=== PATIENT | male | born 1985 | race Caucasian/White ===

== ENCOUNTER 2018-12-14 09:30 | Emergency (ER) | payer MEDICAID ==
--- NOTE | 2018-12-14 09:36 | EDPHY ---
H & P Time Seen by Provider: 12/14/18 09:36 HPI/ROS: HPI: This is a 20-year-old male who presents with Chief Complaint: Medical clearance, dog bites Location: Right forearm right elbow right lomax Quality: Dog scratches, dog bite Duration: Prior to arrival Signs and Symptoms: + bleeding, no radiation, no numbness, no weakness, no tingling, no incontinence, no decreased range of motion, no swelling, + pain, no fever Timing: Acute Severity: [id number] Context: Patient is right-hand dominant, presents accompanied by [facility] Police under arrest after he allegedly ran from the marketing planning manager when they tried to arrest him. Patient was hiding on his left side curl up into a position in the trees when the dog found him. The police dog went after the patient and tried to get him out of his hiding spot. The dog scratched his right lower leg and bit his right forearm. Patient reports moderate, constant, nonradiating pain in his right forearm. He also complains of scratches on his right elbow and right lower leg. She recently released from senior care and reports his tetanus is current. Denies LOC/head injury/neck pain/dizziness/nausea/ vomiting/amnesia/radiation/weakness. No drug allergies. Dog is up-to-date on vaccinations including rabies. Patient is right-hand dominant. Modifying Factors: Police applied a Band-Aid and direct pressure. Comment: ROS: A comprehensive 10 system review of systems is otherwise negative aside from elements mentioned in the history of present illness. MEDICAL/SURGICAL/SOCIAL HISTORY: Medical history: Generally healthy. Does not take any regular medications. Surgical history: Denies Social history: Unemployed. Homeless. Tobacco user. IV methamphetamine user. CONSTITUTIONAL: Mild distress, adult white male, awake and alert, cooperative HEENT: Atraumatic and normocephalic. Poor dentition noted. NECK: supple, no midline tenderness, flexion 45 degrees, extension 45 degrees, right and left lateral flexion 45 degrees. No meningismus. Cardiovascular: Normal S1/S2, regular rate, regular rhythm, without murmur rub or gallop. PULMONARY/CHEST: Symmetrical and nontender. no crepitus. Clear to auscultation bilaterally. Good air movement. No accessory muscle usage. ABDOMEN: Soft, nondistended, nontender, no ecchymosis. PELVIC: no pain with rocking; bilateral hips flexion 125 degrees, extension 30 degrees, with no pain internal rotation and no pain external rotation. BACK: No midline tenderness, no paraspinous spasm, deep tendon reflexes 2/2, no pain with straight leg raise, No foot drop. Achilles reflexes are equal bilaterally. Able to walk on heels and toes without difficulty. EXTREMITIES: 2/2 pulses, strength 5/5, right SHOULDER: Arc test abduction to 180, abduction to 45, horizontal flexion 130, horizontal extension to 45, deltoid strength 5/5. No pain with Neer test/Bond test (impingement). No Tenderness to palpation over AC joint. Right ELBOW: Full extension to 180, flexion to 150, no tenderness over medial epicondyle, no tenderness over lateral epicondyle, no effusion. Right WRIST: Extension to 70, flexion to 80 , radial deviation to 20 degree, ulnar deviation to 30, no scaphoid tenderness , no tenderness over ulnar styloid, no tenderness over radial styloid. DIP/PIP/ MCP flexion/extension intact with good light touch sensation. no deformities, no clubbing, no cyanosis or edema. NEUROLOGICAL: no focal neuro deficits. GCS 15. Light touch sensation intact. SKIN: Warm and dry, right forearm shows 0.5 in puncture wound that is C-shaped 1 in inferior to the right antecubital fossa; abrasions noted to right shoulder , right thigh, right lomax, right calf. no erythema. no rash. Multiple tattoos present on body. Good capillary refill. Source: Patient, Police, RN/MD Exam Limitations: No limitations Constitutional: Initial Vital Signs Temperature (C) 36.5 C 12/14/18 09:30 Heart Rate 74 12/14/18 09:30 Respiratory Rate 16 12/14/18 09:30 Blood Pressure 169/99 H 12/14/18 09:30 O2 Sat (%) 99 12/14/18 09:30 O2 Delivery Mode Room Air Allergies/Adverse Reactions: No Known Allergies Allergy (Unverified 12/14/18 09:36) Home Medications: Medication Instructions Recorded Amoxicillin/Clavulanate Pot 875 mg PO BID #20 tab 12/14/18 [Augmentin 875 MG TAB (*)] Medical Decision Making Procedures: Procedure: Laceration repair. Verbal consent was obtained from the patient. The right forearm, 0.5 in, deep laceration was anesthetized in the usual fashion using 6 mL 1% lidocaine with epinephrine. The wound was irrigated, draped and explored to its base with a gloved finger. There were no deep structures involved. No tendon injury was identified. The wound was loosely approximated with #2, 4-0 PDS. Xeroform and clean sterile dressing applied. The procedure was performed by myself. Procedure: Splint placement. A right posterior arm splint was applied by emergency Room blood bank technician. After application of the splint I returned and re-examined the patient. The splint was adequately immobilizing the joint and distal to the splint the patient's circulation and sensation was intact. ED Course/Re-evaluation: Vital signs reviewed and show tachycardia. Tetanus is up-to-date. No indication for rabies prophylaxis Given Augmentin Abrasions and wounds copiously irrigated Local anesthesia provided to right forearm puncture wound. I loosely approximated puncture edges with #2, 4-0 PDS. Xeroform and clean sterile dressing applied. Decision made to put patient in long-arm posterior splint for few days to decrease immobilization. Written and verbal wound care instructions provided to the patient and police. No signs of neurovascular compromise/tenting of skin/compartment syndrome/ extremities and joints examined above and below area of concern and are neurovascularly intact/tendon injury. This patient was seen under the supervision of my secondary supervising physician. I evaluated care for this patient independently. Discussed this patient with Dr. Rudd who did not see the patient. Differential Diagnosis: Differential diagnosis includes but is not limited to puncture wound, laceration , abrasion, nerve injury, tendon injury. - Data Points Medications Given: Discontinued Medications Amoxicillin/Clavulanate Potassium (Augmentin 875mg) 875 mg PO EDNOW ONE PRN Reason: Protocol Stop: 12/14/18 09:41 Last Admin: 12/14/18 09:51 Dose: 875 mg Departure - Departure Disposition: Home, Routine, Self-Care Clinical Impression: Dog bite of right forearm without complication, Abrasions of multiple sites Condition: Good Instructions: Animal Bite (ED), Splint Care (ED), Abrasion (ED) Additional Instructions: Keep the splint dry and in place for 5 days. After 5 days, you may remove the dressing/splint; wash the site daily with mild soap and water; then pat dry. Keep covered with sterile dressing until fully healed. Take Tylenol 650 mg every 4 hours and/or Ibuprofen 600 mg every 8 hours with food as needed for pain. Take antibiotic twice a day times 10 days. Apply ice for 30 minutes at a time; 2-3 times per day for the next 1-2 days. Wound Care Follow-Up: Removal of sutures in [ 5 ] days. Suture removal is complimentary in uncomplicated cases. Infection or abnormal findings would require reevaluation by the MD. In that case, you may be billed. Patient is Medically Cleared to be discharged into the custody of [facility]. See [facility] for follow-up instructions and prescriptions. Referrals: [facility],. [Clinic] - As per Instructions Prescriptions: Amoxicillin/Clavulanate Pot [Augmentin 875 MG TAB (*)] 875 mg PO BID #20 tab
[2018-12-14] MEDS ORDERED: AMOXICILLIN/CLAVULANATE POT 875/125 MG TAB PO ONE (09:40)
[2018-12-14 10:25] VITALS: BP 160/98
== END 2018-12-14 10:47 | disposition home or self-care (01) ==
LOC: EDBD 09:30
PROC: 0HQDXZZ Repair Right Lower Arm Skin, External Approach (ICD-10-PCS; principal; 2018-12-14)
DX: S51.851A Open bite of right forearm, initial encounter (principal); S80.811A Abrasion, right lower leg, initial encounter; W54.0XXA Bitten by dog, initial encounter; Y92.828 Other wilderness area as the place of occurrence of the external cause; Y93.9 Activity, unspecified; Y99.9 Unspecified external cause status